=== PATIENT | female | born 1985 | race Caucasian/White ===

== ENCOUNTER 2017-05-16 13:26 | Emergency (ER) | payer BC ==
[2017-05-16] MEDS: HYDROcodone/APAP 5/325MG 1 TAB TABLET PO (14:19)
== END 2017-05-16 15:01 | disposition home or self-care (01) ==
LOC: ER 13:26
DX: S92.321A Displaced fracture of second metatarsal bone, right foot, initial encounter for closed fracture (principal); W18.49XA Other slipping, tripping and stumbling without falling, initial encounter; Y93.89 Activity, other specified; Y92.89 Other specified places as the place of occurrence of the external cause; Y99.8 Other external cause status
CPT/HCPCS: 29515; 73630; 99284-25